=== PATIENT | female | born 1980 | race Caucasian/White ===

== ENCOUNTER 2024-12-26 18:51 | Emergency (ER) | payer BC, MEDICARE, SELFPAY ==
[2024-12-26 18:55] VITALS: BP 164/81; PULSE 83; TEMP 36.6; O2SAT 100; BMI 48.9
[2024-12-26] MEDS: KETOROLAC TROMETHAMINE 60 MG/2 ML VIAL IM (19:12)
--- NOTE | 2024-12-26 19:52 | ED_ITS ---
HPI HPI - General Adult General Chief complaint: Back Pain/Injury Stated complaint: L SIDE PAIN Time Seen by Provider: 12/26/24 18:56 Source: patient Mode of arrival: walk-in Limitations: no limitations History of Present Illness HPI narrative: 44 year old female presents with exacerbation of chronic rib pain. Patient has a history of fractured ribs she states over the last several weeks she has had increased left-sided rib pain. Increased with range of motion. Denies any new injury or trauma. Denies difficulty breathing. She was seen by her primary care physician who told her to start using her muscle relaxers which she has not done. Patient has no pain to palpation to the left chest wall. No crepitus, no rash or bruising Related Data Allergies Allergy/AdvReac Type Severity Reaction Status Date / Time No Known Drug Allergies Allergy Verified 12/26/24 18:58 Opioid HPI Opioid Management Most Recent Opioid Data: No Data to Display Review of Systems ROS Status of ROS 10 or more systems reviewed and unremark able except as noted in history and below PFSH PFSH Social History Little interest or pleasure in doing things: not at all Feeling down, depressed, or hopeless: not at all Exam Narrative Exam Narrative: Nurses note and vital signs reviewed and patient is not hypoxic. General: The patient appears well and in no apparent distress. Patient is resting comfortably on cart. Skin: Warm, dry, no pallor noted. There is no rash noted. Head: Normocephalic, atraumatic Eye: Normal conjunctiva, no drainage, EOMI. PERRL Ears, Nose, Mouth, and Throat: oral mucosa is moist. Nares patent. Mouth without vesicles. Ear canals patent. Tm's without Erythema Cardiovascular: Regular Rate and Rhythm Respiratory: Patient is in no distress, no accessory muscle use, lungs are clear to auscultation, no wheezing, rales or rhonchi Back: non-tender, no CVA tenderness bilaterally to percussion. GI: Normal bowel sounds, no tenderness to palpation, no masses appreciated. No rebound, guarding, or rigidity noted. Musculoskeletal: The patient has no evidence of calf tenderness, no pitting edema, symmetrical pulses noted bilaterally Neurological: A&O x4, normal speech Psychiatric: Cooperative Constitutional Vital Signs, click to edit/add: Last Vital Signs Temp 97.8 F 12/26/24 18:55 Pulse 83 12/26/24 18:55 Resp 18 12/26/24 18:55 BP 164/81 H 12/26/24 18:55 Pulse Ox 100 12/26/24 18:55 O2 Del Method Room Air 12/26/24 18:55 Course Vital Signs Vital signs: Vital Signs Temperature 97.8 F 12/26/24 18:55 Pulse Rate 83 12/26/24 18:55 Respiratory Rate 18 12/26/24 18:55 Blood Pressure 164/81 H 12/26/24 18:55 Pulse Oximetry 100 12/26/24 18:55 Oxygen Delivery Method Room Air 12/26/24 18:55 Temperature 97.8 F 12/26/24 18:55 Pulse Rate 83 12/26/24 18:55 Respiratory Rate 18 12/26/24 18:55 Blood Pressure 164/81 H 12/26/24 18:55 Pulse Oximetry 100 12/26/24 18:55 Oxygen Delivery Method Room Air 12/26/24 18:55 Medical Decision Making MDM Narrative Medical decision making narrative: 44 year old female presents with exacerbation of chronic rib pain. Patient has a history of fractured ribs she states over the last several weeks she has had increased left-sided rib pain. Increased with range of motion. Denies any new injury or trauma. Denies difficulty breathing. She was seen by her primary care physician who told her to start using her muscle relaxers which she has not done. Patient has no pain to palpation to the left chest wall. No crepitus, no rash or bruising Upon arrival to the emergency room, patient described a chronic left-sided chest wall pain. X-rays were performed and patient was medicated here with Toradol. Her pain has improved. Patient be discharged home she has muscle relaxants at home denies need for any new muscle relaxants. Patient was told to follow-up primary care physician or her orthopedic physician who does help her with her back issues. I believe pain is due to a muscle skeletal strain. Discharge Plan Discharge Chief Complaint: Back Pain/Injury Clinical Impression: Rib pain on left side Patient Disposition: Home, Self-Care Time of Disposition Decision: 19:54 Condition: Good Mode of Transportation: Private Vehicle Print Language: [place] Instructions: Chest Wall Pain (ED) Referrals: ONIEL RAZO [Primary Care Provider] - 1 week Discharge Date/Time: 12/26/24 19:58
== END 2024-12-26 19:58 | disposition home or self-care (01) ==
PROVIDERS: Emergency Provider Internal Medicine; PCP Nurse Practitioner
DX: R07.81 Pleurodynia (principal)
CPT/HCPCS: 71101; 96372; 99284; J1885